=== PATIENT | female | born 1945 | race Caucasian/White ===

== ENCOUNTER 2017-12-27 12:04 | Outpatient (CLI) | payer MEDICARE, BC | END 2017-12-27 12:05 | disposition home or self-care (01) | LOC: BICMAMMO 12:04 | PROVIDERS: ATTEND Family Medicine | DX: Z12.31 Encounter for screening mammogram for malignant neoplasm of breast (principal); Z80.3 Family history of malignant neoplasm of breast | CPT/HCPCS: 77063; 77067 ==

== ENCOUNTER 2018-12-30 11:53 | Outpatient (CLI) | payer MEDICARE, BC | END 2018-12-30 11:54 | disposition home or self-care (01) | LOC: BICMAMMO 11:53 | PROVIDERS: ATTEND Family Medicine | DX: Z12.31 Encounter for screening mammogram for malignant neoplasm of breast (principal); R92.1 Mammographic calcification found on diagnostic imaging of breast; Z80.3 Family history of malignant neoplasm of breast | CPT/HCPCS: 77063; 77067 ==

== ENCOUNTER 2020-01-02 10:30 | Outpatient (CLI) | payer MEDICARE, BC ==
--- NOTE | 2020-01-02 12:03 | MMO ---
Bilateral MAMMO Bilat Screen [facility]. CLINICAL HISTORY: Patient is 74 years old and is seen for screening. The patient has the following family history of breast cancer: sister, at age 69. The patient has no personal history of cancer. VIEWS: The views performed were: bilateral craniocaudal with tomosynthesis and bilateral mediolateral oblique with tomosynthesis. FILMS COMPARED: The present examination has been compared to prior imaging studies performed at [facility] on 12/27/2017 and 12/30/2018, and at [facility] on 09/06/2015 and 12/01/2016. This study has been interpreted with the assistance of computer-aided detection. MAMMOGRAM FINDINGS: There are scattered fibroglandular densities. There are benign appearing and vascular calcifications seen in both breasts. There are no suspicious masses, suspicious calcifications, or new areas of architectural distortion. IMPRESSION: THERE IS NO MAMMOGRAPHIC EVIDENCE OF MALIGNANCY. A ROUTINE FOLLOW-UP MAMMOGRAM IN 1 YEAR IS RECOMMENDED. THE RESULTS OF THIS EXAM WERE SENT TO THE PATIENT. ACR BI-RADS Category 2 - Benign finding MAMMOGRAPHY NOTE: 1. A negative mammogram report should not delay a biopsy if a dominant of clinically suspicious mass is present. 2. Approximately 10% to 15% of breast cancers are not detected by mammography. 3. Adenosis and dense breasts may obscure an underlying neoplasm. Reported by: NIELS SMITH MD Electonically Signed: [id number]
== END 2020-01-02 10:31 | disposition home or self-care (01) ==
LOC: BICMAMMO 10:30
PROVIDERS: ATTEND Family Medicine
DX: Z12.31 Encounter for screening mammogram for malignant neoplasm of breast (principal); Z80.3 Family history of malignant neoplasm of breast
CPT/HCPCS: 77063; 77067

== ENCOUNTER 2021-01-14 10:48 | Outpatient (CLI) | payer MEDICARE, BC ==
--- NOTE | 2021-01-14 14:04 | MMO ---
Bilateral MAMMO Bilat Screen [facility]. CLINICAL HISTORY: Patient is 75 years old and is seen for screening. The patient has the following family history of breast cancer: sister, at age 69. The patient has no personal history of cancer. VIEWS: The views performed were: bilateral craniocaudal with tomosynthesis and bilateral mediolateral oblique with tomosynthesis. FILMS COMPARED: The present examination has been compared to prior imaging studies performed at [facility] on 12/27/2017, 12/30/2018 and 01/02/2020, and at [facility] on 12/01/2016. This study has been interpreted with the assistance of computer-aided detection. MAMMOGRAM FINDINGS: There are scattered fibroglandular densities. There are stable benign appearing calcifications seen in both breasts. There are also vascular calcifications. There are no suspicious masses, suspicious calcifications, or new areas of architectural distortion. IMPRESSION: THERE IS NO MAMMOGRAPHIC EVIDENCE OF MALIGNANCY. A ROUTINE FOLLOW-UP MAMMOGRAM IN 1 YEAR IS RECOMMENDED. THE RESULTS OF THIS EXAM WERE SENT TO THE PATIENT. ACR BI-RADS Category 2 - Benign finding MAMMOGRAPHY NOTE: 1. A negative mammogram report should not delay a biopsy if a dominant of clinically suspicious mass is present. 2. Approximately 10% to 15% of breast cancers are not detected by mammography. 3. Adenosis and dense breasts may obscure an underlying neoplasm. Reported by: GLENYS ALBERT MD Electonically Signed: [id number]
== END 2021-01-14 10:49 | disposition home or self-care (01) ==
LOC: BICMAMMO 10:48
PROVIDERS: ATTEND Family Medicine
DX: Z12.31 Encounter for screening mammogram for malignant neoplasm of breast (principal); Z80.3 Family history of malignant neoplasm of breast
CPT/HCPCS: 77063; 77067

== ENCOUNTER 2023-06-26 10:09 | Outpatient (CLI) | payer MEDICARE ==
[2023-06-26 11:36] LABS: #Eosinphils 0.1 10x3/uL (0.0-0.5); #Monocytes 0.4 10x3/uL (0.0-1.1); %Eosinophils 2.8 % (0.0-6.0); %Lymphocytes 36.7 % (18.0-47.0); %Monocytes 9.2 % (0.0-10.0); Hematocrit 28.9 % (34.9-44.5); Hemoglobin 8.3 g/dL (12.0-15.5); Mean Corpuscular HGB CONC 28.7 g/dL (32.0-36.0); Mean Corpuscular Hemoglobin 22.3 pg (27.0-33.0); Mean Corpuscular Volume 77.7 fl (81.6-98.3); Mean Platelet Volume 10.9 fl (7.4-10.4); Platelet Count 203 10x3/uL (150-450); RBC Distribution Width 18.4 % (11.5-14.5); Red Blood Cell (RBC) Count 3.72 10x6/uL (3.90-5.03); White Blood Cell (WBC) Count 3.9 10x3/uL (3.5-10.5)
[2023-06-26 12:03] LABS: ALT (SGPT) 14 U/L (8-55); AST (SGOT) 19 U/L (5-34); Albumin 4.2 g/dL (3.4-4.8); Alkaline Phosphatase 88 U/L (40-110); Anion Gap 14 mmol/L (10-20); BUN (Urea Nitrogen) 12 mg/dL (9.8-20.1); Bilirubin, Total 0.4 mg/dL (0.2-1.2); Calc. Creatinine Clearance 0 mL/min (70-130); Calcium 8.9 mg/dL (7.8-10.44); Carbon Dioxide 23 mmol/L (23-31); Chloride 109 mmol/L (98-107); Estimated GFR 70; Globulin 2.4 g/dL (2.4-3.5); Glucose 117 mg/dL (83-110); Potassium 3.7 mmol/L (3.5-5.1); Protein, Total 6.6 g/dL (5.8-8.1); Sodium 142 mmol/L (136-145)
[2023-06-26 12:05] LABS: Microcytosis SLIGHT = 6-15 cells (100X) (0-5/hpf)
[2023-06-26 12:06] LABS: Hypochromia SLIGHT = 6-15 cells (100X) (0-5/hpf); Platelet Adequacy Comment Appears Adequate
[2023-06-26 17:44] LABS: Hemoglobin A1c 5.1 % (4.0-6.0)
== END 2023-06-26 10:10 | disposition home or self-care (01) ==
LOC: LABBT 10:09
PROVIDERS: ATTEND Surgery
DX: Z01.812 Encounter for preprocedural laboratory examination (principal); C18.0 Malignant neoplasm of cecum
CPT/HCPCS: 80053; 82378; 83036; 85025

== ENCOUNTER 2023-06-26 10:30 | Inpatient (IN) | payer MEDICARE ==
[2023-07-02] MEDS ORDERED: fentaNYL PF 100 MCG/2 ML SYRINGE ONE (06:33)
[2023-07-02] MEDS ORDERED: Bupivacaine PF 0.5% 30 ML VIAL ONE (07:14)
[2023-07-02] MEDS ORDERED: Sodium Chloride 0.9% 100 ML ONE (07:32)
[2023-07-02] MEDS ORDERED: cefOXitin 2 GM VIAL ONE (07:32)
[2023-07-02] MEDS ORDERED: Ondansetron PF 4 MG/2 ML Vial ONE (07:45)
[2023-07-02] MEDS ORDERED: NEOSTIGMINE 3 MG/3 ML SYR 3 MG/3 ML SYRINGE ONE (07:45)
[2023-07-02] MEDS ORDERED: PROPOFOL 200 MG/20 ML VIAL ONE (07:45)
[2023-07-02] MEDS ORDERED: Glycopyrrolate 0.2 MG/ML 5 ML SYRINGE ONE (07:45)
[2023-07-02] MEDS ORDERED: Lidocaine 1% PF 5 ML VIAL ONE (07:45)
[2023-07-02] MEDS ORDERED: Dexamethasone 20 MG/5 ML VIAL ONE (07:45)
[2023-07-02] MEDS ORDERED: PHENYLEPHRINE-NS 100 MCG/ML 10 ML SYRINGE ONE (07:45)
[2023-07-02] MEDS ORDERED: Bupivacaine HCl 0.5%/Epinephrine 1:200,000/PF 30 ml Vial ONE (07:45)
[2023-07-02] MEDS ORDERED: Rocuronium Bromide 10 MG/ML (10ML VIAL) ONE (07:45)
[2023-07-02] MEDS ORDERED: Indocyanine Green 25 MG/10 ML VIAL ONE (09:26)
[2023-07-02] MEDS ORDERED: hydrALAZINE 20 MG/ML VIAL SLOW IVP PRN (10:09)
[2023-07-02] MEDS ORDERED: Ondansetron PF 4 MG/2 ML Vial IVP PRN (10:09)
[2023-07-02] MEDS ORDERED: Promethazine HCl 25 MG/ML VIAL IM PRN (10:09)
[2023-07-02] MEDS ORDERED: Morphine 4 MG/ML VIAL SLOW IVP PRN (10:09)
[2023-07-02] MEDS ORDERED: Ipratropium/Albuterol 3 ML NEB NEB PRN (10:09)
[2023-07-02] MEDS ORDERED: fentaNYL 50 mcg/mL 1 mL Vial ONE ×2 (11:13→11:43)
[2023-07-02 13:04] VITALS: BMI 26.6
[2023-07-02] MEDS: Morphine 4 MG/ML VIAL SLOW IVP PRN ×3 (13:27→20:48)
[2023-07-02] MEDS: Sodium Chloride 0.9% 1,000 ML IV SCH ×2 (13:28→23:16)
[2023-07-02] MEDS: Ketorolac Tromethamine 30 MG/ML VIAL IVP SCH ×3 (13:28→23:17)
[2023-07-02] MEDS: cefOXitin 2 GM in Sodium Chloride 0.9% 100 ML IVPB SCH ×2 (17:10→23:16)
[2023-07-02] MEDS: Famotidine/PF 20 mg/2ml Vial SLOW IVP SCH (20:44)
[2023-07-02] MEDS: Famotidine 20 MG TAB PO SCH (20:47)
[2023-07-03 05:33] LABS: #Monocytes 0.8 thou/uL (0.11-0.59); #Neutrophils 6.4 thou/uL (1.40-6.50); %Basophils 0.1 % (0.0-1.0); %Lymphocytes 11.5 % (21.0-51.0); %Monocytes 10.2 % (0.0-10.0); %Neutrophils 77.7 % (42.0-75.0); Hematocrit 22.7 % (36.0-47.0); Hemoglobin 6.5 g/dL (12.0-16.0); Mean Corpuscular HGB CONC 28.6 g/dL (32.0-36.0); Mean Corpuscular Hemoglobin 22.7 pg (27.0-31.0); Mean Corpuscular Volume 79.4 fl (78.0-98.0); Mean Platelet Volume 11.3 fL (7.4-10.4); Platelet Count 148 10x3/uL (130-400); RBC Distribution Width 17.6 % (11.5-14.5); Red Blood Cell (RBC) Count 2.86 mill/uL (4.20-5.40); White Blood Cell (WBC) Count 8.2 10x3/uL (4.8-10.8)
[2023-07-03] MEDS: Ketorolac Tromethamine 30 MG/ML VIAL IVP SCH ×3 (05:39→18:29)
[2023-07-03 05:46] LABS: Anion Gap 8 mmol/L (10-20); BUN (Urea Nitrogen) 15 mg/dL (9.8-20.1); Calc. Creatinine Clearance 50 mL/min (70-130); Calcium 8.1 mg/dL (7.8-10.44); Carbon Dioxide 19 mmol/L (23-31); Chloride 113 mmol/L (98-107); Estimated GFR 60; Glucose 114 mg/dL (83-110); Sodium 136 mmol/L (136-145)
[2023-07-03] MEDS: Morphine 2 MG/ML VIAL SLOW IVP PRN ×3 (05:49→21:00)
[2023-07-03 06:40] LABS: Anisocytosis SLIGHT = 6-15 cells HPF (0-5); CellaVision Operator ID lab.abc; Microcytosis SLIGHT = 6-15 cells HPF (0-5); Platelet Adequacy Comment Platelets Normal; Polychromasia SLIGHT = 2-3 cells HPF (0-2)
[2023-07-03] MEDS: Sodium Chloride 0.9% 1,000 ML IV SCH ×3 (09:34→21:00)
[2023-07-03] MEDS: Famotidine/PF 20 mg/2ml Vial SLOW IVP SCH ×2 (09:35→21:00)
[2023-07-03] MEDS: Famotidine 20 MG TAB PO SCH ×2 (09:35→21:00)
[2023-07-04] MEDS: Ketorolac Tromethamine 30 MG/ML VIAL IVP SCH ×5 (00:48→22:50)
[2023-07-04] MEDS: Sodium Chloride 0.9% 1,000 ML IV SCH ×3 (04:28→22:46)
[2023-07-04 05:57] LABS: #Eosinphils 0.2 thou/uL (0.0-0.7); #Monocytes 0.6 thou/uL (0.11-0.59); #Neutrophils 3.1 thou/uL (1.40-6.50); %Basophils 0.4 % (0.0-1.0); %Eosinophils 3.1 % (0.0-10.0); %Lymphocytes 25.7 % (21.0-51.0); %Monocytes 11.7 % (0.0-10.0); %Neutrophils 58.9 % (42.0-75.0); Hematocrit 20.9 % (36.0-47.0); Mean Corpuscular HGB CONC 28.7 g/dL (32.0-36.0); Mean Corpuscular Hemoglobin 22.8 pg (27.0-31.0); Mean Corpuscular Volume 79.5 fl (78.0-98.0); Mean Platelet Volume 11.5 fL (7.4-10.4); Platelet Count 125 10x3/uL (130-400); RBC Distribution Width 17.7 % (11.5-14.5); Red Blood Cell (RBC) Count 2.63 mill/uL (4.20-5.40); White Blood Cell (WBC) Count 5.2 10x3/uL (4.8-10.8)
[2023-07-04 06:23] LABS: Delete Auto Diff?? NO
[2023-07-04 06:51] LABS: Anisocytosis SLIGHT = 6-15 cells HPF (0-5); Burr Cells SLIGHT = 2-5 cells HPF (0-1); CellaVision Operator ID LAB.JMM; Elliptocytes SLIGHT = 2-5 cells HPF (0-1); Macrocytosis SLIGHT = 6-15 cells HPF (0-5); Ovalocytes SLIGHT = 2-5 cells HPF (0-1); Platelet Adequacy Comment Platelets Decreased; Polychromasia SLIGHT = 2-3 cells HPF (0-2)
[2023-07-04] MEDS: Famotidine 20 MG TAB PO SCH ×2 (08:13→21:07)
[2023-07-04] MEDS: Morphine 2 MG/ML VIAL SLOW IVP PRN ×2 (08:21→14:56)
[2023-07-04] MEDS: Famotidine/PF 20 mg/2ml Vial SLOW IVP SCH ×2 (08:28→22:46)
[2023-07-04] MEDS ORDERED: Iopamidol-370 76% 500 ML MDV (1 ML CHARGE) ONE (09:06)
[2023-07-04 09:48] LABS: Iron 25 ug/dL (50-170); Iron Binding Capacity, Total 350 mcg/dL (265-497)
[2023-07-04] MEDS ORDERED: Iron, Sodium Ferric Gluconate 125 MG in Sodium Chloride 0.9% 100 ML IVPB SCH (14:00)
[2023-07-04 16:38] LABS: Hematocrit 28.4 % (36.0-47.0); Hemoglobin 8.4 g/dL (12.0-16.0)
[2023-07-05] MEDS: Sodium Chloride 0.9% 1,000 ML IV SCH (05:24)
[2023-07-05] MEDS: Ketorolac Tromethamine 30 MG/ML VIAL IVP SCH (05:24)
[2023-07-05 05:50] LABS: #Eosinphils 0.3 thou/uL (0.0-0.7); #Monocytes 0.6 thou/uL (0.11-0.59); #Neutrophils 2.3 thou/uL (1.40-6.50); %Basophils 0.7 % (0.0-1.0); %Monocytes 12.8 % (0.0-10.0); %Neutrophils 53.3 % (42.0-75.0); Hematocrit 25.6 % (36.0-47.0); Hemoglobin 7.6 g/dL (12.0-16.0); Mean Corpuscular HGB CONC 29.7 g/dL (32.0-36.0); Mean Corpuscular Hemoglobin 23.8 pg (27.0-31.0); Mean Platelet Volume 10.8 fL (7.4-10.4); Platelet Count 145 10x3/uL (130-400); RBC Distribution Width 17.7 % (11.5-14.5); White Blood Cell (WBC) Count 4.3 10x3/uL (4.8-10.8)
[2023-07-05] MEDS ORDERED: Ferrous Sulfate 325 MG TAB PO SCH (08:00)
[2023-07-05 08:04] VITALS: BP 158/81; TEMP 98.5
[2023-07-05] MEDS: Famotidine 20 MG TAB PO SCH (08:59)
[2023-07-05] MEDS: Famotidine/PF 20 mg/2ml Vial SLOW IVP SCH (09:00)
[2023-07-05] MEDS ORDERED: Fish Oil 1,000 MG CAP PO SCH (09:00)
[2023-07-05] MEDS ORDERED: Liothyronine Sodium 5 MCG TAB PO SCH (09:00)
[2023-07-05] MEDS ORDERED: Amlodipine 5 MG TAB PO SCH (09:00)
[2023-07-05] MEDS ORDERED: Aspirin 81 mg Enteric Coated Tablet PO SCH (09:00)
[2023-07-05] MEDS ORDERED: Iron, Sodium Ferric Gluconate 125 MG in Sodium Chloride 0.9% 100 ML IVPB SCH (09:00)
== END 2023-07-05 11:06 | disposition home or self-care (01) | DRG 331 ==
LOC: SURG A 07-02 05:34
PROVIDERS: ADMIT Surgery; ATTEND Surgery
PROC: 0DTF4ZZ Resection of Right Large Intestine, Percutaneous Endoscopic Approach (ICD-10-PCS; principal; 2023-07-02)
PROC: 8E0W4CZ Robotic Assisted Procedure of Trunk Region, Percutaneous Endoscopic Approach (ICD-10-PCS; 2023-07-02)
PROC: 30233N1 Transfusion of Nonautologous Red Blood Cells into Peripheral Vein, Percutaneous Approach (ICD-10-PCS; 2023-07-04)
DX: C18.0 Malignant neoplasm of cecum (principal); I10 Essential (primary) hypertension; E78.5 Hyperlipidemia, unspecified; E03.9 Hypothyroidism, unspecified; I49.8 Other specified cardiac arrhythmias; Z90.710 Acquired absence of both cervix and uterus; Z98.51 Tubal ligation status; Z79.82 Long term (current) use of aspirin; Z79.899 Other long term (current) drug therapy; Z82.49 Family history of ischemic heart disease and other diseases of the circulatory system; D63.0 Anemia in neoplastic disease; D50.0 Iron deficiency anemia secondary to blood loss (chronic)
CPT/HCPCS: 36415; 36416; 36430; 71260; 74177; 80048; 82378; 82728; 83540; 83550; 85025; 86850; 86900; 86901; 88309; J0694; J1100; J1650; J1885; J2270; J2272; J2405; J2704; J2916; J3010; J3490; J7050; P9016; Q9967; S0020; S0028

== ENCOUNTER 2023-07-11 01:01 | Inpatient (IN) | payer MEDICARE, OTHER ==
[2023-07-11 01:53] LABS: #Eosinphils 0.1 thou/uL (0.0-0.7); #Monocytes 0.5 thou/uL (0.11-0.59); #Neutrophils 5.6 thou/uL (1.40-6.50); %Basophils 0.4 % (0.0-1.0); %Eosinophils 0.8 % (0.0-10.0); %Lymphocytes 21.6 % (21.0-51.0); %Monocytes 6.3 % (0.0-10.0); %Neutrophils 70.4 % (42.0-75.0); Hematocrit 29.7 % (36.0-47.0); Hemoglobin 9.1 g/dL (12.0-16.0); Mean Corpuscular HGB CONC 30.6 g/dL (32.0-36.0); Mean Corpuscular Hemoglobin 24.3 pg (27.0-31.0); Mean Corpuscular Volume 79.4 fl (78.0-98.0); Mean Platelet Volume 10.2 fL (7.4-10.4); Platelet Count 242 10x3/uL (130-400); RBC Distribution Width 21.2 % (11.5-14.5); Red Blood Cell (RBC) Count 3.74 mill/uL (4.20-5.40)
[2023-07-11 02:07] LABS: Prothrombin Time 13.4 sec (12.0-14.7)
[2023-07-11 02:08] LABS: PTT 29.8 sec (22.9-36.1)
[2023-07-11 02:24] LABS: ALT (SGPT) 88 U/L (8-55); AST (SGOT) 108 U/L (5-34); Albumin 3.8 g/dL (3.4-4.8); Alkaline Phosphatase 90 U/L (40-110); Anion Gap 15 mmol/L (10-20); BUN (Urea Nitrogen) 19 mg/dL (9.8-20.1); Bilirubin, Total 0.3 mg/dL (0.2-1.2); Calc. Creatinine Clearance 0 mL/min (70-130); Calcium 9.1 mg/dL (7.8-10.44); Carbon Dioxide 20 mmol/L (23-31); Chloride 106 mmol/L (98-107); Estimated GFR 69; Glucose 131 mg/dL (83-110); Potassium 4.6 mmol/L (3.5-5.1); Protein, Total 6.8 g/dL (5.8-8.1); Sodium 136 mmol/L (136-145)
[2023-07-11] MEDS ORDERED: Morphine 4 MG/ML VIAL SLOW IVP PRN (07:39)
[2023-07-11] MEDS ORDERED: Ipratropium/Albuterol 3 ML NEB NEB PRN (07:39)
[2023-07-11] MEDS ORDERED: Morphine 2 MG/ML VIAL SLOW IVP PRN (07:39)
[2023-07-11] MEDS ORDERED: Promethazine HCl 25 MG/ML VIAL IM PRN (07:39)
[2023-07-11] MEDS ORDERED: hydrALAZINE 20 MG/ML VIAL SLOW IVP PRN (07:39)
[2023-07-11] MEDS ORDERED: Ondansetron PF 4 MG/2 ML Vial IVP PRN (07:39)
[2023-07-11 08:28] LABS: Hematocrit 25.4 % (36.0-47.0); Hemoglobin 7.8 g/dL (12.0-16.0)
[2023-07-11] MEDS: Famotidine 20 MG TAB PO SCH ×2 (09:13→19:53)
[2023-07-11 09:19] VITALS: BMI 26.9
[2023-07-11] MEDS: Famotidine/PF 20 mg/2ml Vial SLOW IVP SCH ×2 (09:19→20:13)
[2023-07-11] MEDS: Sodium Chloride 0.9% 1,000 ML IV SCH ×2 (09:19→16:56)
[2023-07-11] MEDS ORDERED: Iopamidol-370 76% 500 ML MDV (1 ML CHARGE) ONE (09:44)
[2023-07-11 17:26] LABS: Hematocrit 23.6 % (36.0-47.0); Hemoglobin 7.1 g/dL (12.0-16.0)
[2023-07-11] MEDS ORDERED: GoLYTELY 4,000 ml Bottle PO SCH (20:00)
[2023-07-11 20:11] LABS: Hematocrit 25.2 % (36.0-47.0); Hemoglobin 7.6 g/dL (12.0-16.0)
[2023-07-12] MEDS: Sodium Chloride 0.9% 1,000 ML IV SCH ×2 (00:17→14:40)
[2023-07-12 02:29] LABS: Hematocrit 22.3 % (36.0-47.0); Hemoglobin 6.8 g/dL (12.0-16.0)
[2023-07-12 05:37] LABS: #Eosinphils 0.1 thou/uL (0.0-0.7); #Monocytes 0.4 thou/uL (0.11-0.59); #Neutrophils 2.1 thou/uL (1.40-6.50); %Basophils 0.3 % (0.0-1.0); %Eosinophils 1.8 % (0.0-10.0); %Monocytes 10.6 % (0.0-10.0); Hematocrit 22.8 % (36.0-47.0); Hemoglobin 6.8 g/dL (12.0-16.0); Mean Corpuscular HGB CONC 29.8 g/dL (32.0-36.0); Mean Corpuscular Hemoglobin 24.7 pg (27.0-31.0); Mean Corpuscular Volume 82.9 fl (78.0-98.0); Mean Platelet Volume 10.9 fL (7.4-10.4); Platelet Count 139 10x3/uL (130-400); RBC Distribution Width 21.7 % (11.5-14.5); Red Blood Cell (RBC) Count 2.75 mill/uL (4.20-5.40); White Blood Cell (WBC) Count 3.9 10x3/uL (4.8-10.8)
[2023-07-12 06:02] LABS: Anion Gap 11 mmol/L (10-20); BUN (Urea Nitrogen) 11 mg/dL (9.8-20.1); Calc. Creatinine Clearance 70 mL/min (70-130); Calcium 8.3 mg/dL (7.8-10.44); Carbon Dioxide 22 mmol/L (23-31); Chloride 113 mmol/L (98-107); Estimated GFR 88; Glucose 107 mg/dL (83-110); Sodium 142 mmol/L (136-145)
[2023-07-12 07:34] LABS: Hematocrit 22.7 % (36.0-47.0)
[2023-07-12] MEDS ORDERED: PROPOFOL 200 MG/20 ML VIAL ONE (09:31)
[2023-07-12] MEDS ORDERED: Lidocaine 1% PF 5 ML VIAL ONE (09:31)
[2023-07-12] MEDS: Famotidine/PF 20 mg/2ml Vial SLOW IVP SCH (10:22)
[2023-07-12] MEDS: Famotidine 20 MG TAB PO SCH (10:22)
[2023-07-12 11:09] VITALS: BP 154/68; TEMP 97.8
[2023-07-12 14:49] LABS: Hematocrit 28.9 % (36.0-47.0); Hemoglobin 8.8 g/dL (12.0-16.0)
== END 2023-07-12 14:41 | disposition home or self-care (01) | DRG 920 ==
LOC: ERS 01:01 → SURG A 08:42
PROVIDERS: ADMIT Surgery; ATTEND Surgery
PROC: 0DJD8ZZ Inspection of Lower Intestinal Tract, Via Natural or Artificial Opening Endoscopic (ICD-10-PCS; principal; 2023-07-12)
PROC: 30243N1 Transfusion of Nonautologous Red Blood Cells into Central Vein, Percutaneous Approach (ICD-10-PCS; 2023-07-12)
DX: K91.840 Postprocedural hemorrhage of a digestive system organ or structure following a digestive system procedure (principal); C18.9 Malignant neoplasm of colon, unspecified; K92.2 Gastrointestinal hemorrhage, unspecified; E03.9 Hypothyroidism, unspecified; E78.5 Hyperlipidemia, unspecified; I10 Essential (primary) hypertension; K64.8 Other hemorrhoids; Z98.51 Tubal ligation status; Z90.710 Acquired absence of both cervix and uterus; Z82.49 Family history of ischemic heart disease and other diseases of the circulatory system; Z79.890 Hormone replacement therapy; Z79.82 Long term (current) use of aspirin
CPT/HCPCS: 36415; 36430; 74177; 80048; 80053; 85025; 85610; 85730; 86850; 86900; 86901; 93005; 96374; G0378; J2704; J7050; P9016; Q9967; S0028

== ENCOUNTER 2024-01-17 12:21 | Outpatient (CLI) | payer OTHER | END 2024-01-17 12:22 | disposition home or self-care (01) | LOC: CT 12:21 | PROVIDERS: ATTEND Internal Medicine Hematology & Oncology | DX: C18.9 Malignant neoplasm of colon, unspecified (principal); R91.1 Solitary pulmonary nodule; K76.0 Fatty (change of) liver, not elsewhere classified; Z90.49 Acquired absence of other specified parts of digestive tract | CPT/HCPCS: 71260; 74177 ==

== ENCOUNTER 2025-11-09 08:55 | Outpatient (CLI) | payer MEDICARE ==
[2025-11-09 09:48] LABS: Estimated GFR - POC 64.0
[2025-11-09] MEDS ORDERED: Iopamidol 370 76% 100 ML VIAL ONE (13:11)
== END 2025-11-09 08:56 | disposition home or self-care (01) ==
LOC: CT 08:55
PROVIDERS: ATTEND Internal Medicine Hematology & Oncology
DX: C18.0 Malignant neoplasm of cecum (principal); D50.0 Iron deficiency anemia secondary to blood loss (chronic); R91.1 Solitary pulmonary nodule; I70.0 Atherosclerosis of aorta; E04.2 Nontoxic multinodular goiter; K31.89 Other diseases of stomach and duodenum; Z90.710 Acquired absence of both cervix and uterus
CPT/HCPCS: 36415; 71260; 74177; 82565; Q9967